=== PATIENT | male | born 1970 | race Caucasian/White ===

== ENCOUNTER 2017-06-03 15:20 | Emergency (ER) | payer OTHER ==
[~2017-06-03] VITALS: Wt 61.2 kg
[~2017-06-03 15:20] MED LIST: ASPIRIN325 MG PO; AUGMENTIN 875 M1 TAB PO; CIPRODEX 0.3%-7.5 ML OT; CLARITIN10 MG PO; FLEXERIL5 MG PO; IBUPROFEN600 MG PO; KLOR-CON 1010 MEQ PO; MOTRIN800 MG PO; TRAMADOL HCL50 MG PO; TYLENOL W/CODEI1 TA2 PO
[2017-06-03 16:08] LABS: BASO % 0.3 % (0.0-1.0); EOS % 0.1 % (1.0-4.0); HEMATOCRIT 44.5 % (42.0-52.0); HEMOGLOBIN 15.3 g/dl (14.0-18.0); LYMPH # 1.9 10*3/uL (1.3-4.4); LYMPH % 22.2 % (27.0-41.0); MEAN CELL VOLUME 93.1 fl (80.0-94.0); MEAN CORPUSCULAR HGB CONC 34.4 g/dl (33.0-37.0); MEAN PLATELET VOLUME 10.5 fl (9.6-12.3); MONO # 0.8 10*3/uL (0.1-1.0); MONO % 9.7 % (3.0-9.0); NEUT # 5.8 10*3/uL (2.3-7.9); NEUT % 67.5 % (47.0-73.0); PLATELET COUNT AUTOMATED 364 10*3/uL (130-400); RED BLOOD COUNT 4.78 10*6/uL (4.50-5.90); RED CELL DISTRI WIDTH 12.6 % (0-14.5); WHITE BLOOD COUNT 8.6 10*3/uL (4.8-10.8)
[2017-06-03 17:03] LABS: ALBUMIN 3.9 gm/dl (3.1-4.5); ALKALINE PHOSPHATASE 82 U/L (45-117); BILIRUBIN, TOTAL 0.3 mg/dl (0.2-1.0); BUN 4 mg/dl (7-24); CARBON DIOXIDE 27 mmol/L (21-32); CHLORIDE 106 mmol/L (98-107); EST GLOM FILT AFRICAN AMERICAN > 60 ml/min; GLUCOSE 97 mg/dL (65-99); POTASSIUM 4.1 mmol/L (3.5-5.1); SGOT/AST 15 IU/L (3-35); SGPT/ALT 22 U/L (12-78); SODIUM 140 mmol/L (136-145); TOTAL PROTEIN 7.7 gm/dL (6.4-8.2)
[2017-06-03 17:04] LABS: TROPONIN I < 0.015 ng/ml (<0.045)
[2017-06-03] MEDS ORDERED: VIBRAMYCIN100 MG PO (17:21)
== END 2017-06-03 17:41 | disposition home or self-care (01) ==
LOC: ED 15:20
PROVIDERS: Registered Nurse
DX: L03.115 Cellulitis of right lower limb (principal); F17.200 Nicotine dependence, unspecified, uncomplicated